=== PATIENT | female | born 1935 | race Caucasian/White ===

== ENCOUNTER 2020-01-20 08:52 | Observation (INO) ==
[2020-01-20] MEDS ORDERED: Naloxone 0.4 MG/ML INJ IVP PRN (09:21)
[2020-01-20 10:00] LABS: Eosinophils # 0.1 K/mcL (0.0-0.6); Hematocrit 34.8 % (35.3-44.9); Hemoglobin 10.5 g/dL (11.5-15.4); Mean Corpuscular HGB Conc 30.2 g/dL (31.6-35.5); Mean Corpuscular Volume 79.6 fL (83.0-100.0); Mean Platelet Volume 9.7 fL (9.4-12.4); Platelet Count 194 K/mcL (140-400); Red Blood Count 4.37 M/mcL (3.82-4.97); White Blood Count 3.8 K/mcL (4.3-11.1)
[2020-01-20 10:26] LABS: BUN/Creatinine Ratio 19 (6-26); Blood Urea Nitrogen 14 mg/dL (8-23); Carbon Dioxide 31 mEq/L (23-29); Chloride 106 mEq/L (98-107); Glucose 93 mg/dL (70-105); Magnesium 1.8 mg/dL (1.6-2.6); Osmolality,Calculated 292 (280-300); Phosphorous 3.7 mg/dL (2.7-4.5); Potassium 3.4 mEq/L (3.5-5.1); Sodium 141 mEq/L (136-145); eGFR For African Americans > 60 (> 60); eGFR For Non-African Americans > 60 (> 60)
[2020-01-20 10:37] LABS: Monocytes # 0.5 K/mcL (0.0-1.3); Neutrophils # 2.3 K/mcL (1.6-8.9); Platelet Estimate Normal (Normal)
[2020-01-20 12:44] LABS: % Iron Saturation 15 % (15-50); Iron 45 mcg/dL (50-170); Transferrin 221 mg/dL (203-362)
[2020-01-21 06:29] LABS: Basophils % 0.5 %; Eosinophils # 0.1 K/mcL (0.0-0.6); Eosinophils % 2.7 %; Hematocrit 34.2 % (35.3-44.9); Hemoglobin 10.1 g/dL (11.5-15.4); Immature Granulocytes % 0.3 % (0-4); Lymphocytes # 1.4 K/mcL (0.6-4.6); Lymphocytes % 36.2 %; Mean Corpuscular HGB Conc 29.5 g/dL (31.6-35.5); Mean Corpuscular Hemoglobin 23.8 pg (28.0-33.3); Mean Corpuscular Volume 80.5 fL (83.0-100.0); Mean Platelet Volume 10.3 fL (9.4-12.4); Monocytes # 0.5 K/mcL (0.0-1.3); Monocytes % 12.2 %; Neutrophils # 1.8 K/mcL (1.6-8.9); Platelet Count 194 K/mcL (140-400); Red Blood Count 4.25 M/mcL (3.82-4.97); Segmented Neutrophils % 48.1 %; White Blood Count 3.8 K/mcL (4.3-11.1)
[2020-01-21 06:59] LABS: Macrocytosis Present (Not Present); Microcytosis Present (Not Present); Platelet Estimate Normal (Normal)
[2020-01-21] MEDS ORDERED: *HR* Metoprolol 5 MG/5 ML VIAL IVP PRN (07:19)
[2020-01-21] MEDS ORDERED: Iron Sucrose Complex 400 MG in 0.9 % Sodium Chloride 250 ML IVPB ONE (08:46)
[2020-01-21] MEDS: amLODIPine 5 MG TABLET PO SCH (08:50)
[2020-01-21] MEDS: Gabapentin 300 MG CAPSULE PO SCH (08:50)
[2020-01-21] MEDS: Pantoprazole 40 MG VIAL IVP SCH (08:50)
[2020-01-22] MEDS ORDERED: 0.9 % Sodium Chloride 1,000 ML IVC SCH (00:01)
[2020-01-22] MEDS: Gabapentin 300 MG CAPSULE PO SCH (09:14)
[2020-01-22] MEDS: amLODIPine 5 MG TABLET PO SCH (09:14)
[2020-01-22] MEDS: Pantoprazole 40 MG VIAL IVP SCH (09:15)
[2020-01-22 11:22] VITALS: BP 157/72
[2020-01-22] MEDS ORDERED: *HR* Propofol 500 MG/50 ML BOTTLE IVP ONE (13:21)
== END 2020-01-22 13:22 | disposition home health service (06) ==
LOC: 3ANU
PROVIDERS: ADMIT Surgery; ATTEND Surgery
PROC: ENDOEBX (2020-01-22 08:30)